=== PATIENT | female | born 1960 | race Caucasian/White ===

== ENCOUNTER 2019-06-10 11:10 | Outpatient (CLI) | payer BC, SELFPAY ==
--- NOTE | 2019-06-10 11:20 | MM_ITS ---
WS: [id number] BILATERAL SCREENING DIGITAL MAMMOGRAM WITH CAD HISTORY: SCREENING COMPARISON: 04/28/2018 and 04/11/2017 Bilateral CC and MLO views submitted. Computer aided detection analyzed. Breast composition: The breasts are extremely dense, which lowers the sensitivity of mammography. No suspicious masses, microcalcifications or architectural distortion. MM/[place] [id number] IMPRESSION: BI-RADS: 1-Negative FOLLOW UP: 1 Year Follow-up
== END 2019-06-10 11:11 | disposition home or self-care (01) ==
LOC: RADSHAW 11:17
PROVIDERS: Family Provider Family Medicine; PCP Family Medicine; Visit Provider Family Medicine
DX: Z12.31 Encounter for screening mammogram for malignant neoplasm of breast (principal)
CPT/HCPCS: 77067

== ENCOUNTER 2020-07-06 14:45 | Outpatient (CLI) | payer BC, SELFPAY ==
--- NOTE | 2020-07-06 14:49 | MM_ITS ---
WS: [id number] BILATERAL DIGITAL SCREENING MAMMOGRAM WITH CAD CLINICAL INFORMATION: SCREENING HISTORY: Screening mammogram. No current complaints. COMPARISON: June 10, 2019 TECHNIQUE: Bilateral CC and MLO. FINDINGS: The breast are composed of extremely dense tissue, which can limit the detection of small underlying mass lesions. No suspicious focal mass, asymmetry, calcifications, or architectural distortion. No ev idence of malignancy. MM/[place] [id number] IMPRESSION: BI-RADS: 1-Negative FOLLOW UP: 1 Year Follow-up Recommend return to annual screening mammography.
== END 2020-07-06 14:46 | disposition home or self-care (01) ==
LOC: RADSHAW 14:47
PROVIDERS: PCP Family Medicine; Visit Provider Family Medicine
DX: Z12.31 Encounter for screening mammogram for malignant neoplasm of breast (principal)
CPT/HCPCS: 77067

== ENCOUNTER 2021-04-24 10:49 | Outpatient (CLI) | payer BC, SELFPAY ==
--- NOTE | 2021-04-24 11:01 | XRR_ITS ---
PROCEDURE INFORMATION: Exam: XR Right Finger(s) Exam date and time: 04/24/2021 11:01 AM Age: 60 years old Clinical indication: Pain and injury or trauma; Other: Smashed right pointer finger; Crushing; Index finger; Finger(s); Prior surgery; Surgery type: Carpal tunnel; Additional info: Finger pain TECHNIQUE: Imaging protocol: XR Right fingers. Views: Minimum 2 views. COMPARISON: CR Elbow 3 views, RIGHT* [id number] 11/10/2016 9:38 AM FINDINGS: Bones/joints: There is a longitudinal fracture involving the 2nd distal phalanx. The fracture extends from the tip of the tuft of the distal phalanx to the medial/ulnar margin of the proximal metaphysis. The fracture line does not extend to the distal interphalangeal joint. There is multifocal osteoarthritis, most severe at the 1st carpometacarpal joint. Soft tissues: No soft tissue radiopaque foreign body. XR/XR finger RT min 2V [id number] IMPRESSION: 1. 2nd distal phalangeal fracture. 2. Osteoarthritis. Radiation Dose CTDIVOL = (mGy): DLP = (mGy-cm)
== END 2021-04-24 10:50 | disposition home or self-care (01) ==
PROVIDERS: PCP Family Medicine; Visit Provider Family Medicine
DX: S62.630A Displaced fracture of distal phalanx of right index finger, initial encounter for closed fracture (principal); X58.XXXA Exposure to other specified factors, initial encounter; M19.041 Primary osteoarthritis, right hand
CPT/HCPCS: 73140

== ENCOUNTER 2021-08-31 13:22 | Outpatient (CLI) | payer OTHER, SELFPAY ==
--- NOTE | 2021-08-31 13:29 | MM_ITS ---
WS: [id number] BILATERAL SCREENING 3D TOMOSYNTHESIS DIGITAL MAMMOGRAM WITH CAD HISTORY: SCREENING COMPARISON: 07/06/2020, 06/10/2019 Bilateral CC and MLO views submitted. Computer aided detection analyzed. Breast composition: The breasts are extremely dense, which lowers the sensitivity of mammography. No suspicious masses, microcalcifications or architectural distortion. MM/[place] [id number] IMPRESSION: BI-RADS: 1-Negative FOLLOW UP: 1 Year Follow-up
== END 2021-08-31 13:23 | disposition home or self-care (01) ==
LOC: RADSHAW 13:26
PROVIDERS: PCP Family Medicine; Visit Provider Family Medicine
DX: Z12.31 Encounter for screening mammogram for malignant neoplasm of breast (principal)
CPT/HCPCS: 77063; 77067

== ENCOUNTER 2021-09-19 13:37 | Outpatient (CLI) | payer OTHER, SELFPAY ==
--- NOTE | 2021-09-19 13:59 | XR_ITS ---
WS: [id number] AP pelvis, 2 views of each hip, 09/19/2021 Clinical Data: ARTHRITIS Comparison: None. Findings: The pelvis is intact without fracture. The SI joints and pubic symphysis are unremarkable. The soft t issues are normal. The hips show no abnormalities. The right hip shows no erosion, sclerosis, narrowing or fragmentation of the femoral head. There is a small acetabular lip of the right hip. The left hip shows no erosion, sclerosis, narrowing or fragmentation of the femoral head. There is a small acetabular lip of the left hip. XR/XR hip BI 3-4V wo/[place] [id number] Impression: 1. Negative pelvis. 2. Small bilateral acetabular lips.
== END 2021-09-19 13:38 | disposition home or self-care (01) ==
LOC: RAD 13:48
PROVIDERS: PCP Family Medicine; Visit Provider Family Medicine
DX: M19.90 Unspecified osteoarthritis, unspecified site (principal)
CPT/HCPCS: 73522

== ENCOUNTER → 2021-10-02 10:41 | Outpatient (BNVA) | payer OTHER, SELFPAY | PROVIDERS: PCP Family Medicine; Visit Provider Family Medicine | DX: Z00.00 Encounter for general adult medical examination without abnormal findings (principal); E03.9 Hypothyroidism, unspecified | CPT/HCPCS: 80053; 80061; 84443 ==

== ENCOUNTER 2021-11-10 09:58 | Outpatient (CLI) | payer OTHER, SELFPAY ==
--- NOTE | 2021-11-10 10:20 | MR_ITS ---
WS: [id number] MRI RIGHT HIP without CONTRAST. COMPARISON: 09/19/2021 Multiplanar, multisequence imaging is performed without contrast. There is a small amount of increased signal within the RIGHT femoral head and neck. There is also inc reased fluid within the RIGHT hip joint. Moderate joint effusion. Increased marrow edema in the super ior lateral acetabulum. There is also small amount of increased signal in the medial acetabulum. No f ractures. Osteochondral lesion in the superior femoral head measures 6 mm. There is adjacent defect i n the cartilage. Moderate narrowing of the joint space. Small osteophyte or very small 7 mm loose bod y in the joint space laterally. This is adjacent to the acetabular rim and marrow edema in the superi or lateral acetabulum but no obvious connection. This could be a small loose body in the joint space. No muscle atrophy or muscle edema. SI joints are negative. Very minimal narrowing of the LEFT hip jersey nt. 12 mm fibroid. Small amount of free fluid in the pelvis. MR/MR hip RT wo con* [id number] IMPRESSION: 1. Moderate degenerative changes involving the humeral head, joint space and a cetabulum. There is marrow edema with no fractures. Joint space narrowing and o steochondral lesion involving the superior femoral head. 2. Osteophyte versus 7 mm loose body in the joint along the superior lateral f emoral head. This may be an osteophyte but an obvious connection to the acetabu lum is not apparent. 3. Small fibroid in a small amount of free fluid in the pelvis.
== END 2021-11-10 09:59 | disposition home or self-care (01) ==
PROVIDERS: PCP Family Medicine; Visit Provider Family Medicine
DX: M16.11 Unilateral primary osteoarthritis, right hip (principal); D21.5 Benign neoplasm of connective and other soft tissue of pelvis; M25.551 Pain in right hip
CPT/HCPCS: 73721

== ENCOUNTER → 2021-11-13 13:34 | Outpatient (BNVA) | payer OTHER, SELFPAY | PROVIDERS: PCP Family Medicine; Visit Provider Family Medicine | DX: E87.1 Hypo-osmolality and hyponatremia (principal); E03.9 Hypothyroidism, unspecified | CPT/HCPCS: 80048; 84443 ==

== ENCOUNTER 2022-09-19 14:43 | Outpatient (CLI) | payer OTHER, SELFPAY ==
--- NOTE | 2022-09-19 14:54 | MM_ITS ---
WS: [id number] BILATERAL 3D TOMOSYNTHESIS DIGITAL SCREENING MAMMOGRAM WITH CAD CLINICAL INFORMATION: SCREENING HISTORY: Screening mammogram. No current complaints. COMPARISON: August 31, 2021 TECHNIQUE: Bilateral CC and MLO. FINDINGS: The breast are composed of extremely dense tissue, which can limit the detection of small underlying mass lesions. No suspicious focal mass, asymmetry, calcifications, or architectural distortion. No ev idence of malignancy. MM/[place] [id number] IMPRESSION: BI-RADS: 1-Negative FOLLOW UP: 1 Year Follow-up Recommend return to annual screening mammography.
== END 2022-09-19 14:44 | disposition home or self-care (01) ==
LOC: RAD 14:50
PROVIDERS: PCP Family Medicine; Visit Provider Family Medicine
DX: Z12.31 Encounter for screening mammogram for malignant neoplasm of breast (principal)
CPT/HCPCS: 77063; 77067

== ENCOUNTER → 2023-08-12 15:07 | Outpatient (BNVA) | payer OTHER, SELFPAY | PROVIDERS: PCP Family Medicine; Visit Provider Family Medicine | DX: Z00.00 Encounter for general adult medical examination without abnormal findings (principal); E11.9 Type 2 diabetes mellitus without complications; R10.9 Unspecified abdominal pain | CPT/HCPCS: 80053; 80061; 83690; 84443 ==

== ENCOUNTER 2023-09-22 09:41 | Outpatient (CLI) | payer OTHER, BC, MEDICAID, SELFPAY ==
--- NOTE | 2023-09-22 09:44 | MM_ITS ---
WS: [id number] BILATERAL SCREENING DIGITAL TOMOSYNTHESIS MAMMOGRAM WITH CAD HISTORY: SCREENING COMPARISON: 09/19/2022, 08/31/2021, 06/10/2019 and 04/11/2017 Bilateral CC and MLO views with tomosynthesis and synthetic mammography submitted. Computer aided det ection analyzed. Breast composition: The breasts are extremely dense, which lowers the sensitivity of mammography. No suspicious masses, microcalcifications or architectural distortion. Very dense fibroglandular asymmet carmina in the anterior portions of each breast. There are underlying well-circumscribed masses anterior ly which has been present over multiple prior years without change. No distortion. MM/[place] [id number] IMPRESSION: BI-RADS: 2-Benign FOLLOW UP: 1 Year Follow-up
== END 2023-09-22 09:42 | disposition home or self-care (01) ==
LOC: RAD 09:41
PROVIDERS: PCP Family Medicine; Visit Provider Family Medicine
DX: Z12.31 Encounter for screening mammogram for malignant neoplasm of breast (principal); R92.30 Dense breasts, unspecified
CPT/HCPCS: 77063; 77067

== ENCOUNTER 2024-07-30 11:41 | Outpatient (RCR) | payer OTHER, BC, MEDICAID, SELFPAY | END 2024-08-23 23:59 | disposition home or self-care (01) | LOC: SPT 11:41 | PROVIDERS: Visit Provider Family Medicine | DX: M54.9 Dorsalgia, unspecified (principal); G89.29 Other chronic pain | CPT/HCPCS: 97110; 97162 ==

== ENCOUNTER 2024-08-24 06:00 | Outpatient (RCR) | payer OTHER, BC, MEDICAID, SELFPAY | END 2024-09-09 08:57 | disposition home or self-care (01) | LOC: SPT 06:00 | PROVIDERS: PCP Family Medicine; Visit Provider Family Medicine | DX: M54.9 Dorsalgia, unspecified (principal); G89.29 Other chronic pain | CPT/HCPCS: 97530 ==

== ENCOUNTER → 2024-08-24 13:50 | Outpatient (BNVA) | payer OTHER, BC, MEDICAID, SELFPAY | PROVIDERS: PCP Family Medicine; Visit Provider Student in an Organized Health Care Education/Training Program | DX: M16.11 Unilateral primary osteoarthritis, right hip (principal); M25.551 Pain in right hip | CPT/HCPCS: 73502 ==

== ENCOUNTER 2024-10-06 14:54 | Outpatient (CLI) | payer OTHER, BC, MEDICAID, SELFPAY | END 2024-10-06 14:55 | disposition home or self-care (01) | LOC: LAB 14:54 | PROVIDERS: PCP Family Medicine; Visit Provider Student in an Organized Health Care Education/Training Program | DX: Z01.818 Encounter for other preprocedural examination (principal) | CPT/HCPCS: 80053; 81001; 85025 ==

== ENCOUNTER 2024-10-20 09:52 | Outpatient (CLI) | payer OTHER, BC, MEDICAID, SELFPAY ==
--- NOTE | 2024-10-20 10:00 | CT_ITS ---
WS: [id number] CT RIGHT hip, NONCONTRAST [facility] TECHNIQUE: Noncontrast CT of the RIGHT hip to include the RIGHT knee CLINICAL INFORMATION: RIGHT TOTAL HIP ARTHROPLASTY DLP: [address] scans at [facility] use at least one of these dose optimization techniques: automated exposure control; mA and/or kV adjustment per patient size (includes targeted exams where dose is matched to clinical indication); or iterative reconstruction. FINDINGS: Advanced arthritis RIGHT hip with [id number]-[id number] articulation. Subchondral sclerosis and extensive subchondral cystic changes involving femoral head and acetabulum. Hypertrophic changes about the acetabulum. Moderate to advanced degenerative narrowing of the LEFT hip with a small amount of subchondral cystic change and sclerosis. Sigmoid diverticulosis. Normal appendix RIGHT lower quadrant. Fat-containing umbilical hernia. CT/CT hip RT [facility] [id number] IMPRESSION: Images obtained for preoperative purposes.
== END 2024-10-20 09:53 | disposition home or self-care (01) ==
PROVIDERS: PCP Family Medicine; Visit Provider Student in an Organized Health Care Education/Training Program
DX: M16.0 Bilateral primary osteoarthritis of hip (principal); R93.7 Abnormal findings on diagnostic imaging of other parts of musculoskeletal system; M89.38 Hypertrophy of bone, other site; K57.30 Diverticulosis of large intestine without perforation or abscess without bleeding; K42.9 Umbilical hernia without obstruction or gangrene
CPT/HCPCS: 73700

== ENCOUNTER 2024-10-25 15:47 | Observation (INO) | payer OTHER, BC, MEDICAID, SELFPAY ==
[2024-10-25] VITALS (12 sets, daily range): BP systolic 97–148; BP diastolic 60–94; PULSE 57–88; RESP 16–18; TEMP 36.2–36.6; O2SAT 16–98
[2024-10-25] MEDS: sodium chloride 0.9% 1,000 ML 30 ML IV (11:47)
[2024-10-25] MEDS: acetaminophen 1,000 MG/100 ML PIGGYBACK 400 MG IV ×2 (11:53→20:14)
[2024-10-25] MEDS: ketorolac 30 mg/mL INJ IVP (11:54)
[2024-10-25 12:06] LABS: Basophils % 0.7 %; Eosinophils # 0.1 10^3/uL (0.0-0.8); Eosinophils % 1.7 %; Hematocrit 40.8 % (36-47); Lymphocytes % 34.1 %; Mean Corpuscular HGB Conc 34.1 g/dL (30-55); Mean Corpuscular Hemoglobin 33.1 pg (27-33); Mean Corpuscular Volume 97.1 fl (85-98); Mean Platelet Volume 9.2 fL (7.4-10.4); Monocytes # 0.4 10^3/uL (0.2-0.9); Neutrophils # 3.36 10^3/uL (1.8-7.7); Neutrophils % 56.2 %; Nucleated Red Blood Cells % 0 %; Platelet Count 261 10^3/cmm (157-399); Red Cell Distribution Width 12.2 % (12.1-15.1); White Blood Count 5.98 10^3/uL (3.29-11.43)
--- NOTE | 2024-10-25 12:08 | W.PM.OPSUD ---
Surgery/Procedure H&P Update DATE OF PROCEDURE: October 25, 2024 DATE H&P PERFORMED: 10/08/24 H&P UPDATE INFORMATION: I have reviewed H&P completed within last 30 days, I have examined patient prior to procedure and No changes to prior documentation PREOP DIAGNOSIS: Right hip DJD PRIMARY INDICATION FOR PROCEDURE: Right hip DJD PLANNED PROCEDURE: Operation Date: 10/25/24 13:10 Proposed Procedures p Girish Robot Anterior Hip Arthroplasty(Right) - Fede Houser DO
--- NOTE | 2024-10-25 12:15 | ANES.PREANE2 ---
Pre-Anesthetic Assessment Height/Weight: Height 5 ft 1 in Weight 133 lb Temp Pulse Resp BP Pulse Ox O2 Del Method 97.8 F 88 16 127/94 97 Room Air 10/25/24 11:38 10/25/24 11:38 10/25/24 11:38 10/25/24 11:38 10/25/24 11:38 10/25/24 11:38 Preop Diagnosis: Right hip DJD Operation Date: 10/25/24 13:10 Proposed Procedures p Girish Robot Anterior Hip Arthroplasty(Right) - Fede Houser, DO Was Beta Radha taken within 24 hours: N/A Was Clonidine taken within 24 hours: N/A Last intake: Intake Last Liquid Date 10/24/24 Last Liquid Time 23:30 Last Solid Date 10/24/24 Last Solid Time 19:00 Social No alcohol and No tobacco Exam alert, oriented x 3, clear to auscultation bilaterally and regular rate & rhythm Airway Submandibular: within normal limits Cervical ROM: within normal limits Mallampati: Class II Dentition: full Anesthetic Plan ASA status: 2 Anesthesia: MAC and Regional (specify below) Other: No prior issues with anesthesia NPO since yesterday evening History of hypothyroidism on Synthroid Takes meloxicam daily for chronic pain Denies any cardiac or pulmonary issues METs greater than 4, ambulation limited secondary to pain Labs reviewed acceptable for procedure Plan for spinal anesthesia Medications/Allergies Home Medications ?Medication ?Instructions ?Recorded ?Confirmed ?Last Taken ?Type levothyroxine 100 mcg tablet 100 mcg PO DAILY 10/21/24 10/21/24 10/21/24 History meloxicam 15 mg tablet 15 mg PO DAILY 10/21/24 10/21/24 10/20/24 History Allergies Allergy/AdvReac Type Severity Reaction Status Date / Time No Known Allergies Allergy Verified 10/08/24 10:41 Current Medications Generic Name Dose Route Start Last Admin Trade Name Freq PRN Reason Stop Dose Admin Sodium Chloride 1,000 mls @ 30 mls/hr 10/25/24 11:30 10/25/24 11:47 Sodium Chloride 0.9% IV 10/26/24 11:29 30 mls/hr .Q24H PACHECO Administration PFSH Anesthesia Medical History (Updated 10/08/24 @ 10:51 by Vijaya Olvera MD) Immunization declined Blood product declined Social History (Updated 10/08/24 @ 10:49 by Vijaya Olvera MD) Smoking and tobacco/nicotine status: never used tobacco/nicotine Agree to transfusion: No Data Anesthesia 10/25/24 11:46 10/25/24 11:46 Short CBC 10/25/24 Range/Units 11:46 WBC 5.98 (3.29-11.43) 10^3/uL Hgb 13.90 (11.27-16.99) g/dL Hct 40.8 (36-47) % MCV 97.1 (85-98) fl Plt Count 261 (157-399) 10^3/cmm Neut % (Auto) 56.2 % Neut # (Auto) 3.36 (1.8-7.7) 10^3/uL
[2024-10-25] MEDS: ceFAZolin 2,000 MG in sodium chloride 0.9% (plus) 50 ML 100 MG IV ×2 (12:32→20:32)
[2024-10-25 12:36] LABS: Anion Gap 17.8 (5-19); Blood Urea Nitrogen 15 mg/dL (8-23); Calcium 9.8 mg/dL (8.5-10.5); Carbon Dioxide 24 mmol/L (22-29); Chloride 102 mmol/L (98-107); Creatinine Clr Calc Pharmacy 69.4719; Glomerular Filtration Rate 84.8 mL/min (90-130); Glucose 96 mg/dL (65-115); Osmolality Calculated 291 mOsm/kg (285-295); Potassium 3.8 mmol/L (3.5-5.1); Sodium 140 mmol/L (136-145)
[2024-10-25] MEDS: tranexamic acid 1,000 mg/10mL SDV 1000 MG IV (12:53)
[2024-10-25] MEDS: VANCOMYCIN ADD-Vantage 1,000 MG VIAL 1000 MG XX (13:47)
[2024-10-25] MEDS: lidocaine-epi 1% 20 mL INJ INJECTION (13:49)
--- NOTE | 2024-10-25 15:14 | XR_ITS ---
WS: [id number] XR hip RT 2-3V wo/w pel* [id number] REASON FOR EXAM: OR PICS FINDINGS: Total right hip arthroplasty. Components of the arthroplasty are intact and in proper position and alignment. No focal bony abnormality. XR/XR hip RT 2-3V wo/w pel* [id number] IMPRESSION: Total right hip arthroplasty without abnormality.
--- NOTE | 2024-10-25 15:21 | XR_ITS ---
WS: [id number] XR hip RT 2-3V wo/w pel* [id number] REASON FOR EXAM: post op ALEXANDRA FINDINGS: Total right hip arthroplasty. Components of the arthroplasty are intact and in proper position and alignment. No acute bone abnormality. XR/XR hip RT 2-3V wo/w pel* [id number] IMPRESSION: Total right hip arthroplasty without abnormality.
--- NOTE | 2024-10-25 15:22 | P.BOP_ITS ---
Date of Procedure: 10/25/2024 Surgeon: Fede Houser DO Control Clerk Head(s): Jose Luis Houser PA-C Procedure(s) performed: Right total hip arthroplasty?Girish robotic assist (anterior approach) Findings of the procedure(s): Patient underwent procedure as planned without issues or complications. Estimated blood loss: 200 mL Specimen(s) removed: Femoral head and acetabular reamings removed Post-operative diagnosis: Right hip degenerative joint disease
--- NOTE | 2024-10-25 15:23 | P.OP_ITS ---
Operative Report Date of procedure: October 25, 2024 Surgeon: Fede Houser DO Route Salesman: Jose Luis Houser PA-C: PA was necessary for assistance in this case with leg positioning, assistance with hip reductions, retraction and protection of neurovascular structures as well as assistance in implantation wound closure and dressing application. Procedure: Preoperative diagnosis: Right hip degenerative joint disease Post-op diagnosis: Same Procedure done: Right total hip arthroplasty?Girish robotic assisted?anterior?approach Implants: Rosa Trident acetabular shell size 50 mm Rosa acetabular screw 25 mm [place] acetabular screw 15 mm [place] insignia hip stem standard offset size 4 Trident 0 degree polyethylene 36 degree inner diameter alpha code D 36 mm femoral head ceramic -2.5 mm Surgeon: Fede Houser DO Anesthesia: Other (Spinal) Estimated blood loss: 200 mL IV fluids: 1300 mL Complications: None Findings: See operative report narrative Condition: stable Disposition: floor Brief History: Patient is a 64-year-old female presented to my outpatient office setting findings consistent with nzaz-da-iuts arthritis advanced degenerative joint disease of the right hip.? We talked about treatment options as far as nonoperative and operative intervention. Pt has failed conservative treatment.? Patient's right hip degenerative joint disease has been so severe she has been minimally ambulatory over the past couple months given her pain and decreased range of motion.? we talked about treatment options at this point time pt understands the risk benefits complication alternatives surgical nonsurgical treatment options.? Patient understands the risk of surgery and agrees to proceed.? Patient has underwent a preoperative evaluation. Pt cleared for tamez rical intervention. Pt understood and was agreeable to proceed with a right total hip arthroplasty?Girish robotic assisted consent was reviewed and signed with patient.?? All questions answered.? Procedure: Patient was seen evaluated in the preoperative holding area.? Consent was reviewed and signed with patient.? Correct operative extremity was then marked. ? All questions were answered at this time.? Once cleared by anesthesia used to brought back to the operative suite he then underwent anesthesia per the anesthesia department of a spinal anesthetic. The patient was administered tranexamic acid and preop antibiotics, and placed in the supine position. All bony prominences were properly padded, securely fixed to the table, and administered?general?anesthetic. The patient was tamez bsequently transferred from the hospital bed to the [place] table. Bilateral lower extremities were placed in the traction boots. The pelvis was well approximated against the perineal post.? Final timeout performed.? Patient received appropriate preoperative antibiotics. Both hips were then prepped and draped in a normal orthopedic fashion.? Started with a small incision 2 fingerbreadths above the ASIS on the left iliac wing to place? pelvic arrays.? Small incision was made directly down to bone.? 3 pelvic pins were placed with excellent fixation.? The robotic array was secured to the nonoperative iliac wing using sterile technique. The extremity was then definitively draped in standard, sterile fashion.? The array was found to be visible by the robot. ?A standard??anterior?supine approach was performed to the?operative hip joint. The skin was incised down to the tensor fascia dodie muscle and fascia. Fascia was split longitudinally in line with its fibers. The tensor fascia dodie muscle was retracted laterally. The appropriate retractors were placed superiorly. Lateral circumflex vessels were identified and appropriately ligated. The hip capsule was then identified.? Appropriate retractors were placed superiorly and inferiorly along the capsule directly onto bone.??That was split longitudinally up to the acetabular rim in line with the femoral neck. The femoral capsule was found to be significantly hypertrophic, thickened, and significantly fibrotic. The capsule was then elevated both superiorly and inferiorly down to the lesser trochanter as well as up towards the greater trochanter.? Tag stitches were applied with 0 Vicryl into the capsule.? Femoral check point was?then inserted and confirmed on the lateral trochanter proximal femur.? .? A distal marker?of a sterile EKG lead was placed into the distal femur for measurement of leg lengths.? Preoperative leg lengths were registered and confirmed at this point. Next the appropriate-sized neck cut was then performed after being measured with robotic assistance. Femoral head was removed atraumatically this was found to have significant degenerative changes and deformity with significant osteophyte formation.? Femoral head was found to be severely degenerated and flattening with, eburnated bone. Acetabulum was also inspected and was found to have peripheral osteophytes as well as no evidence of cartilage consistent with [id number] arthritis.? Appropriate retractors were then placed in the?anterior?and posterior wall.? The remaining labrum was then excised from the periphery of the acetabular rim. Pulvinar was excised.? At this point registration for the Girish was performed on the acetabular side and confirmed. Once confirmed, any osteophytes able to be were removed. We planned 40 degrees of lateral opening and 20 degrees of anteversion. At this point, we reamed and medialized to the inner wall of the acetabulum with a size? 50?reamer for line to line fit.?The acetabulum was found to have good bleeding bone throughout.?? Reamer removed excellent bleeding bone circumferentially with sufficient?anterior?and posterior wall. ?The definitive acetabular cup 50 mm was inserted and impacted under?Girish guidance with the appropriate amount of anteversion and lateral opening. It was then secured with 2x 6.5 mm cancellous screws in appropriate safe zone position.? I subsquently drilled measured and place appropriate length acetabular screws which measured 25 mm and 15 mm.? These had excellent fixation final x-rays were taken of the acetabular work and showed a seated and well fixed acetabular cup with appropriate position acetabular screws.? ?Next a 36-mm X3 neutral liner was impacted into the?acetabular shell and secured. Hip was then irrigated with copious amounts of irrigation. At this point, the remaining femoral releases were then performed allowing the adequate mobilization of the?right?femur.? Traction was confirmed to being off to the right lower extremity and the femur was then externally rotated, extended, and adducted giving adequate exposure of the proximal femur in the surgical wound. Box cut was then used to enter the intramedullary canal of the?femur. Canal finder was placed down the canal of the?operative femur. Appropriate-sized broaches from a size 0 up to a size 4 were impacted down the operative femoral canal with the appropriate amount of anteversion.? A multiple trials were attempted and it was found?that?-2.5mm neck was found to be most appropriate for a soft tissue tensioning offset, stability and the leg lengths?that was confirmed with Girish. ?Stability was then assessed and excellent stability with patient external rotation of greater?than 90 degrees and traction with no evidence of hip instability.? Appropriate tension noted of the soft tissues. At this point, the hip was relocated.?Girish guidance was again used to confirm appropriate leg lengths.? We utilized C-arm fluoroscopic guided as well to confirm appropriate implant positioning both AP and lateral films. Patient's trial was the appropriate size for patient's stability and excellent soft tissue tensioning as well as this was mapped with her preoperative planning given she had been significantly shortened given her arthritis.? Operative hip was then re-dislocated using a bone hook. All trials were then removed from the?operative femur. Adequate exposure was then once again obtained. The trials were removed. The definitive Rosa insignia standard offset size 4 stem was impacted down the?femoral canal with the appropriate amount of anteversion to the same level as the trial. The appropriate sized head 36 mm ceramic -2.5mm was impacted onto the trunnion, and the?operative?hip was then relocated with traction and internal rotation. Final measurements were obtained on Girish confirming leg lengths and offset.? Once again hip stability was assessed and found to have excellent stability and appropriate soft tissue tensioning.? Hip was irrigated with copious amounts of irrigation.? Vancomycin powder was placed within the wound bed for added infection prophylaxis.? The superior and inferior leaflets of the capsule were then closed with Ethibond suture.? Vicryl tag stitches were removed.? The superficial layer of the tensor fascia dodie fascia was closed using 0 stratafix suture in a running fashion.? Subcutaneous tissues were closed with running 3-0 Stratafix, skin was closed with 4-0 monocryl.?Surgical Prineo glue and steri strips were?applied and covered with a tamika incisional VAC dressing to the operative side.?The incision on the non-operative side for the robotic array was irrigated and closed with layered fashion of 0 Vicryl, 2-0 Vicryl and running Monocryl suture and surgical glue and covered with Silverlon. ?The patient was subsequently awoken per Anesthesia and transferred to PACU in satisfactory condition. ?Leg lengths and rotational profile were found to be appropriate. ? DISPOSITION: The patient will be admitted to the hospital for initiation of DVT prophylaxis, physical therapy, pain control. The patient is to weight bear as tolerated.?Anterior?hip precautions, postoperative antibiotics,?postoperative TXA and Eliquis?for DVT prophylaxis.? Patient will receive appropriate discharge instructions as well as pain medication postoperatively and will follow up in my office in 2 weeks.? Patient with work with PT/OT.? Internal medicine will be consulted for medical management
--- NOTE | 2024-10-25 16:04 | ANE.PACU2 ---
Inpatient post-anesthesia follow up: Airway intact: Yes Vital signs: Temperature 98.6 F Pulse Rate 65 Respiratory Rate 20 Blood Pressure 119/76 Pulse Oximetry 96 Oxygen Delivery Me thod Room Air Oxygen Flow Rate 6 Fraction of Inspir ed Oxygen Hydration adequate: Yes Nausea and vomiting: No Pain level: 1 Mental status: Baseline
[2024-10-25] MEDS: mupirocin oint 22 gm 1 APPLIC NASAL (17:01)
[2024-10-25] MEDS: sennosides-docusate Tablet 2 TAB PO (17:01)
[2024-10-25] MEDS: chlorhexidine gluconate 0.12% Btl 473 mL 30 ML MUCOUS MEM ×2 (17:01→20:29)
[2024-10-25] MEDS: iron polysaccharide complex 150 mg Capsule PO (17:01)
[2024-10-25] MEDS: calcium carb-vit d 600mg/400unit 1 Tablet 1 EACH PO (17:01)
[2024-10-25] MEDS: lactated ringers 1,000 ML 100 ML IV (17:02)
--- NOTE | 2024-10-25 17:31 | PC.NURSE ---
Patient had increased bruising and swelling to incision area on right anterior hip. This was noted immediately when she came up from OR, but swelling had increased and a bruise had formed toward the lower part of the incision. Dr. Houser was notified of change at 1721, he stated to just monitor patient and if it became worse, to notify him again. Patient resting well in bed at this time.
--- NOTE | 2024-10-25 17:47 | P.HP_ITS ---
Providers/Chief Complaint 2 Admitting Physician: Fede Houser DO Primary Care Provider: Tj Marie MD Chief Complaint: M25.559 History of Present Illness Moni Stewart is a 64 year old female Review of Systems 2 Card: Denies: chest pain Resp: Denies: dyspnea Medications/Allergies Home Medications ?Medication ?Instructions ?Recorded ?Confirmed ?Last Taken ?Type levothyroxine 100 mcg tablet 100 mcg PO DAILY 10/21/24 10/21/24 10/21/24 History meloxicam 15 mg tablet 15 mg PO DAILY 10/21/2409/2410/20/24 History Allergies Allergy/AdvReac Type Severity Reaction Status Date / Time No Known Allergies Allergy Verified 10/08/24 10:41 PFSH Acute 2 PFSH: Medical History (Updated 10/08/24 @ 10:51 by Vijaya Olvera MD) Immunization declined Blood product declined Social History (Updated 10/08/24 @ 10:49 by Vijaya Olvera MD) Smoking and tobacco/nicotine status: never used tobacco/nicotine Agree to transfusion: No Vitals/I&O/Wt Last Vital Signs Temp 97.3 F L 10/25/24 16:43 Pulse 75 10/25/24 16:48 Resp 18 10/25/24 16:48 BP 123/80 10/25/24 16:43 Pulse Ox 96 10/25/24 16:48 O2 Del Method Room Air 10/25/24 16:48 O2 Flow Rate 6 10/25/24 15:43 10/25/24 10/25/24 10/25/24 06:59 14:59 22:59 Intake Total 1150 / 1150 350 / 1500 Output Total 400 / 400 Balance 1150 / 1150 -50 / 1100 Weight last 48 hrs Weight 60.328 kg Weight 60.328 kg Physical Exam 2 Urinary Catheter Management: Caraballo: Cath Placed During This Visit: yes Urinary Catheter Date of Insertion: 10/25/24 Urinary Catheter Time of Insertion: 12:41 Data 10/25/24 11:46 10/25/24 11:46 A&P PDMP PDMP Reviewed: Not Reviewed Coding Level of Care Code Acute Code for Chg Fwd
--- NOTE | 2024-10-25 18:04 | PM.CONSULT ---
Providers/Reason For Consult Consulting Physician/Specialty*: orthopedics Reason for Consult*: medical managment Attending Physician: Fede Houser DO Primary Care Provider: Tj Marie MD History of Present Illness History of Present Illness Moni Stewart is a 64 year old female Moni Stewart is a 64 year old female with past medical history of hypothyroidism, admitted to [facility] for right total hip arthroplasty, currently sitting up in bed, denies any fevers, no chills, no cough, she is enjoying her dinner, no cardiovascular history, no history of strokes, no history of diabetes, no history of smoking Review of Systems Card: Denies: chest pain Resp: Denies: dyspnea Medications/Allergies Home Medications ?Medication ?Instructions ?Recorded ?Confirmed ?Last Taken ?Type levothyroxine 100 mcg tablet 100 mcg PO DAILY 10/21/24 10/21/24 10/21/24 History meloxicam 15 mg tablet 15 mg PO DAILY 10/21/24 10/21/24 10/20/24 History Allergies Allergy/AdvReac Type Severity Reaction Status Date / Time No Known Allergies Allergy Verified 10/08/24 10:41 Current Medications Generic Name Dose Route Start Last Admin Trade Name Freq PRN Reason Stop Dose Admin Calcium Carbonate 1 each 10/25/24 18:00 10/25/24 17:01 Calcium Carb-Vit D 600mg/400unit 1 Tablet PO 1 each BID PACHECO Administration Chlorhexidine Gluconate 30 ml 10/25/24 17:00 10/25/24 17:01 Chlorhexidine Gluconate 0.12% Btl 473 Ml MUCOUS MEM 30 ml QID PACHECO Administration Lactated Ringer's 1,000 mls @ 100 mls/hr 10/25/24 16:21 10/25/24 17:02 Lactated Ringers IV 100 mls/hr .Q10H PACHECO Administration Mupirocin 1 applic 10/25/24 18:00 10/25/24 17:01 Mupirocin Oint 22 Gm NASAL 10/30/24 17:59 1 applic BID PACHECO Administration Polysaccharide Iron Complex 150 mg 10/25/24 18:00 10/25/24 17:01 Iron Polysaccharide Complex 150 Mg Capsule PO 150 mg BIDWM PACHECO Administration Senna/Docusate Sodium 2 tab 10/25/24 18:00 10/25/24 17:01 Sennosides-Docusate Tablet PO 2 tab BID PACHECO Administration PFSH Acute PFSH: Medical History Immunization declined Blood product declined Social History Smoking and tobacco/nicotine status: never used tobacco/nicotine Agree to transfusion: No Vitals/I&O/Wt Last Vital Signs Temp 97.3 F L 10/25/24 16:43 Pulse 75 10/25/24 16:48 Resp 18 10/25/24 16:48 BP 123/80 10/25/24 16:43 Pulse Ox 96 10/25/24 16:48 O2 Del Method Room Air 10/25/24 16:48 O2 Flow Rate 6 10/25/24 15:43 10/25/24 10/25/24 10/25/24 06:59 14:59 22:59 Intake Total 1150 / 1150 350 / 1500 Output Total 400 / 400 Balance 1150 / 1150 -50 / 1100 Weight last 48 hrs Weight 60.328 kg Weight 60.328 kg Physical Exam Const: COMMON NORMALS: no acute distress and patient oriented x3 HENMT: COMMON NORMALS: normocephalic HEAD & SCALP: normocephalic Resp: COMMON NORMALS: normal respiratory effort, No retractions, No use of accessory muscles and clear to auscultation bilaterally AUSCULTATION: clear to auscultation bilaterally Cardio: COMMON NORMALS: regular rate, regular rhythm, S1 normal heart sound present and S2 normal heart sound present RATE: regular rate RHYTHM: regular rhythm HEART SOUNDS: S1 normal heart sound present and S2 normal heart sound present GI: COMMON NORMALS: Normal to inspection, nondistended, normoactive bowel sounds present and non-tender Extremity: COMMON NORMALS: no pedal edema NARRATIVE EXTREMITY EXAM: Right hip wrapped Neuro: COMMON NORMALS: patient oriented x3 Psych: COMMON NORMALS: mental status grossly normal Urinary Catheter Management: Caraballo: Cath Placed During This Visit: yes Urinary Catheter Date of Insertion: 10/25/24 Urinary Catheter Time of Insertion: 12:41 Data 10/25/24 11:46 10/25/24 11:46 A&P Assessment and plan (1) Hypothyroid: (2) Hip osteoarthritis: Plan Right hip osteoarthritis, status post right total hip arthroplasty, pain control and anticoagulation as per orthopedic team Hypothyroidism resume levothyroxine Eliquis for DVT prophylaxis PDMP PDMP Reviewed: Not Reviewed Consult Attestations Medical Necessity Statement: Patient requires hospitalization for right hip osteoarthritis status post arthroplasty Diagnoses Hypothyroid E03.9 Hip osteoarthritis M16.9
[2024-10-25] MEDS: tranexamic acid 1,000 MG/100 ML PREMIX 600 MG IV (18:50)
[2024-10-25] MEDS: oxyCODONE 5 mg IR Tab/Cap PO (18:50)
[2024-10-26] VITALS (8 sets, daily range): BP systolic 93–146; BP diastolic 54–92; PULSE 65–82; RESP 16–20; TEMP 36.5–37.2; O2SAT 94–99
[2024-10-26] MEDS: lactated ringers 1,000 ML 100 ML IV (02:35)
[2024-10-26] MEDS: temazepam 15 mg Capsule PO (02:35)
[2024-10-26] MEDS: oxyCODONE 5 mg IR Tab/Cap PO ×3 (02:35→12:37)
[2024-10-26] MEDS: acetaminophen 1,000 MG/100 ML PIGGYBACK 400 MG IV ×2 (04:17→11:24)
[2024-10-26] MEDS: ceFAZolin 2,000 MG in sodium chloride 0.9% (plus) 50 ML 100 MG IV ×2 (04:31→11:23)
[2024-10-26 06:07] LABS: Basophils % 0.3 %; Eosinophils % 0.4 %; Lymphocytes # 1.6 10^3/uL (0.8-4.8); Lymphocytes % 22.1 %; Mean Corpuscular HGB Conc 32.8 g/dL (30-55); Mean Corpuscular Hemoglobin 32.5 pg (27-33); Mean Corpuscular Volume 99.3 fl (85-98); Mean Platelet Volume 9.6 fL (7.4-10.4); Monocytes # 0.6 10^3/uL (0.2-0.9); Monocytes % 8.5 %; Neutrophils # 4.96 10^3/uL (1.8-7.7); Nucleated Red Blood Cells % 0 %; Platelet Count 197 10^3/cmm (157-399); Red Blood Count 2.92 10^6/uL (3.85-5.65); Red Cell Distribution Width 12.2 % (12.1-15.1); White Blood Count 7.29 10^3/uL (3.29-11.43)
[2024-10-26 06:31] LABS: Blood Urea Nitrogen 14 mg/dL (8-23); Calcium 8.4 mg/dL (8.5-10.5); Carbon Dioxide 22 mmol/L (22-29); Chloride 103 mmol/L (98-107); Creatinine Clr Calc Pharmacy 60.7879; Glomerular Filtration Rate 72.7 mL/min (90-130); Glucose 97 mg/dL (65-115); Osmolality Calculated 282 mOsm/kg (285-295); Sodium 136 mmol/L (136-145)
[2024-10-26] MEDS: calcium carb-vit d 600mg/400unit 1 Tablet 1 EACH PO (08:05)
[2024-10-26] MEDS: mupirocin oint 22 gm 1 APPLIC NASAL (08:05)
[2024-10-26] MEDS: apixaban 5 mg Tablet 2.5 MG PO (08:05)
[2024-10-26] MEDS: sennosides-docusate Tablet 2 TAB PO (08:05)
[2024-10-26] MEDS: iron polysaccharide complex 150 mg Capsule PO (08:05)
[2024-10-26] MEDS: levothyroxine 100 mcg Tablet PO (08:05)
[2024-10-26] MEDS: multivitamin therapeutic Tablet 1 TAB PO (08:05)
[2024-10-26] MEDS: chlorhexidine gluconate 0.12% Btl 473 mL 30 ML MUCOUS MEM (08:05)
--- NOTE | 2024-10-26 09:48 | PC.CHAP ---
Pastoral Care Encounter/Spiritual Assessment Type of Contact [] Declined developer evangelist visit [] Patient/Family/Request visit [] Outpatient visit [] Follow-up visit [] Physician referral [] Code/Alert [x] Routine visit [] Staff referral [] Actively dying [] Patient sleeping [] Family support [] [] Out of room [] Palliative care [] [] Receiving care in room [] Pre-surgical visit [] Trauma [] Long length of stay [] ICU visit [] Other: Relational/Emotional Strength [x] Patient feels connected with others/family/visitors/staff [] Distress [] Loneliness/isolation [] Abandonment Spirituality of Patient [x] Person of Rebecca [ Attends Sabianism of their Rebecca [x] Believes in Prayer [] Reads Bible or Zoroastrian materials [] There are Spiritual issues to be addressed Special Officer Automat Interventions [x Prayer [x] Active listening [x] Non-anxious presence [x] Spiritual/emotional support [] Crisis/trauma care [] Spiritual counseling [] Bereavement support [] Provided bereavement packet [] Provided Bible/devotional materials [] Provided toy/stuffed animal, coloring book to patient or family member [] Provided Communion [] Anointing/Hillman [] Salvation [] Completed spiritual assessment [x] Other: Impact on Illness or Injury [] Angry [] Fearful [] Anxious [] Often cries [] Exhaustion [] Unable to work [] Unable to attend oriental orthodox [] Unable to walk/stand [] Unable to read [] Unable to drive [] Unable to eat/drink [] Unable to sleep [] Unable to be with family [] Patient intubated [] Other: Summary Time spent with patient 5 min
--- NOTE | 2024-10-26 12:01 | P.PN_ITS ---
Subjective 2 Subjective: Patient was seen this morning she is alert oriented x 3, following all commands, denies any fevers, no chills, no nausea, no chest pain, she has received a dose of her pain medication, plan on PT OT, discussed with her that as she is being discharged on Eliquis for DVT prophylaxis, monitor for bloody black stools or significant follow-up if so come to the hospital she should not take her meloxicam for as long as she is taking Eliquis as there is a high risk of bleeding, she voiced understanding, all questions answered Vitals/I&O/Wt Last Vital Signs Temp 98.6 F 10/26/24 11:14 Pulse 65 10/26/24 11:14 Resp 20 H 10/26/24 11:14 BP 119/76 10/26/24 11:14 Pulse Ox 96 10/26/24 11:14 O2 Del Method Room Air 10/26/24 11:14 O2 Flow Rate 6 10/25/24 15:43 10/25/24 10/26/24 10/26/24 22:59 06:59 14:59 Intake Total 1411.667 / 2561.667 1046.667 / 3608.334 1270 / 1270 Output Total 1300 / 1300 1150 / 2450 Balance 111.667 / 1261.667 -103.333 / 3941.397 8524 / 1270 Weight last 48 hrs Weight 60.328 kg Weight 60.328 kg Weight 60.328 kg Physical Exam 2 Const: COMMON NORMALS: no acute distress and patient oriented x3 Resp: COMMON NORMALS: normal respiratory effort, No retractions, No use of accessory muscles and clear to auscultation bilaterally AUSCULTATION: clear to auscultation bilaterally Cardio: COMMON NORMALS: regular rate, regular rhythm, S1 normal heart sound present and S2 normal heart sound present RATE: regular rate RHYTHM: r egular rhythm HEART SOUNDS: S1 normal heart sound present and S2 normal heart sound present GI: COMMON NORMALS: Normal to inspection, nondistended, normoactive bowel sounds present and non-tender Extremity: COMMON NORMALS: no pedal edema Neuro: COMMON NORMALS: patient oriented x3 Psych: COMMON NORMALS: mental status grossly normal Urinary Catheter Management: Caraballo: Cath Placed During This Visit: yes, but has since been removed by the nurse Reason for Continuing Indwelling Catheter: Perioperative Use in Selected Surgeries Urinary Catheter Date of Insertion: 10/25/24 Urinary Catheter Time of Insertion: 12:41 Date Urinary Catheter Removed: 10/26/24 Time Urinary Catheter Discontinued: 06:20 Data 10/26/24 05:16 10/26/24 05:16 A&P Assessment and plan (1) Hypothyroid: (2) Hip osteoarthritis: Plan Right hip osteoarthritis, status post right total hip arthroplasty, pain control and anticoagulation as per orthopedic team Hypothyroidism resume levothyroxine Eliquis for DVT prophylaxis PDMP PDMP Reviewed: Not Reviewed Attestations 2 Medical Necessity Statement*: Patient will be discharged today Diagnoses Hypothyroid E03.9 Hip osteoarthritis M16.9
--- NOTE | 2024-10-26 13:24 | PM.DCS ---
Discharge Providers Date of Admission: 10/25/24 15:47 Date of Discharge: October 26, 2024 Attending Provider at Admission: Fede Houser DO Attending Provider at Discharge: Clinton Pablo MD Primary Care Provider: Tj Marie MD Diagnoses at Discharge Discharge Diagnosis (1) Hypothyroid: Status: Acute (2) Hip osteoarthritis: Status: Resolved Reason for Visit Reason for Visit: M25.559 Brief History: Status post right total hip arthroplasty?Girish robotic assisted Hospital Course Hospital Course Patient was brought to the hospital through the preoperative holding area with plan for right total hip arthroplasty for right hip dengerative joint disease. Once cleared by anesthesia for surgery subsequently was taken back to the operative suite underwent anesthesia per the anesthesia department and then underwent right total hip arthroplasty with Girish robotic assistance anterior approach without any complications. Patient was then subsequently taken back to PACU in stable condition recovering well. Once recovered, patient was then subsequently admitted to the floor postoperatively. Internal medicine was consulted for medical management assistance. Patient weightbearing as tolerated to the right lower extremity, anterior hip precautions. PT/OT. Pain control. DVT prophylaxis. Postoperative antibiotics and TXA. dressing was change as needed. Internal medicine was on board and appreciate their medical management and assistance. Patient recovered well postoperatively. Pt was determined on postoperative day 1 the patient was stable for discharge from orthopedic as well as internal medicine standpoint. Patient's labs were monitored daily. Patient will receive appropriate pain medication as well as DVT prophylaxis postoperatively. Appropriate discharge instructions as well. Patient was then discharged in stable condition. Patient will discharge home. Pt will follow-up with Orthopedics in the office in 2 weeks. Patient understands and agrees with current plan. All questions answered. Understands there is any issues or concerns and contact the office. Physical Exam Narrative: Right hip examination: Dressing on in place, clean dry and intact to the right hip. Dressing to the left hip is clean dry and intact. No evidence of saturation. Patient has normal postoperative swelling and tenderness to palpation to the right hip and left iliac wing. Compartments are soft compressible,'s calf soft and nontender. Sensations intact to light touch distally. Distal pulses are palpable. Patient is able to wiggle toes as well as plantarflex and dorsiflex ankle. Patient is able to perform straight leg raise today. Urinary Catheter Management: Caraballo: Cath Placed During This Visit: yes, but has since been removed by the nurse Reason for Continuing Indwelling Catheter: Perioperative Use in Selected Surgeries Urinary Catheter Date of Insertion: 10/25/24 Urinary Catheter Time of Insertion: 12:41 Date Urinary Catheter Removed: 10/26/24 Time Urinary Catheter Discontinued: 06:20 Discharge Data Studies Completed and Pending Completed Studies During Hospitalization Category Date Time Status XR hip RT 2-3V wo/w pel* [id number] Routine Exams 10/25/24 15:14 Completed XR hip RT 2-3V wo/w pel* [id number] Routine Exams 10/25/24 15:21 Completed Pending at discharge Category Date Time Status Basic Metabolic Panel AM LABS Lab 10/27/24 04:00 Ordered Basic Metabolic Panel AM LABS Lab 10/28/24 04:00 Ordered Complete Blood Count w/Auto AM LABS Lab 10/27/24 04:00 Ordered Complete Blood Count w/Auto AM LABS Lab 10/28/24 04:00 Ordered Radiology Impressions Hip/Pelvis X-Ray 10/25/24 15:21 IMPRESSION: Total right hip arthroplasty without abnormality. Laboratory Results WBC 7.29 10^3/uL (3.29-11.43) 10/26/24 05:16 RBC 2.92 10^6/uL (3.85-5.65) L 10/26/24 05:16 Hgb 9.50 g/dL (11.27-16.99) L D 10/26/24 05:16 Hct 29.0 % (36-47) L 10/26/24 05:16 MCV 99.3 fl (85-98) H 10/26/24 05:16 MCH 32.5 pg (27-33) 10/26/24 05:16 MCHC 32.8 g/dL (30-55) 10/26/24 05:16 RDW 12.2 % (12.1-15.1) 10/26/24 05:16 Plt Count 197 10^3/cmm (157-399) 10/26/24 05:16 MPV 9.6 fL (7.4-10.4) 10/26/24 05:16 Neut % (Auto) 68.0 % 10/26/24 05:16 Lymph % (Auto) 22.1 % 10/26/24 05:16 Mcmullen % (Auto) 8.5 % 10/26/24 05:16 Eos % (Auto) 0.4 % 10/26/24 05:16 Baso % (Auto) 0.3 % 10/26/24 05:16 Neut # (Auto) 4.96 10^3/uL (1.8-7.7) 10/26/24 05:16 Lymph # (Auto) 1.6 10^3/uL (0.8-4.8) 10/26/24 05:16 Mcmullen # (Auto) 0.6 10^3/uL (0.2-0.9) 10/26/24 05:16 Eos # (Auto) 0.0 10^3/uL (0.0-0.8) 10/26/24 05:16 Baso # (Auto) 0.0 10^3/uL (0.0-0.1) 10/26/24 05:16 Nucleated RBC % (auto) 0 % 10/26/24 05:16 Nucleated RBCs # 0.0 /100WBC 10/26/24 05:16 Sodium 136 mmol/L (136-145) 10/26/24 05:16 Potassium 4.0 mmol/L (3.5-5.1) 10/26/24 05:16 Chloride 103 mmol/L (98-107) 10/26/24 05:16 Carbon Dioxide 22 mmol/L (22-29) 10/26/24 05:16 Anion Gap 15.0 (5-19) 10/26/24 05:16 BUN 14 mg/dL (8-23) 10/26/24 05:16 Creatinine 0.8 mg/dL (0.5-0.9) 10/26/24 05:16 GFR Calculation 72.7 mL/min (90-130) L 10/26/24 05:16 Glucose 97 mg/dL (65-115) 10/26/24 05:16 Calculated Osmolality 282 mOsm/kg (285-295) L 10/26/24 05:16 Calcium 8.4 mg/dL (8.5-10.5) L 10/26/24 05:16 Blood Type AB Positive 10/26/24 08:16 Rho(D) Type Rh positive 10/26/24 08:16 Antibody Screen Negative 10/26/24 08:16 Vitals Last Vital Signs Temp 98.6 F 10/26/24 11:14 Pulse 65 10/26/24 11:14 Resp 16 10/26/24 12:37 BP 119/76 10/26/24 11:14 Pulse Ox 96 10/26/24 11:14 O2 Del Method Room Air 10/26/24 11:14 O2 Flow Rate 6 10/25/24 15:43 Discharge Plan Discharge Patient Disposition: Home Condition: Stable Prescriptions: New Eliquis 2.5 mg tablet 2.5 mg PO BID 35 Days Qty: 70 0RF methocarbamol 500 mg tablet 500 mg PO TID PRN (Reason: muscle spasms/pain) 14 Days Qty: 42 0RF oxycodone 5 mg tablet 5 mg PO Q6H PRN (Reason: pain postop) 7 Days Qty: 28 0RF cefadroxil 500 mg capsule 500 mg PO BID 7 Days Qty: 14 0RF Continued levothyroxine 100 mcg tablet 100 mcg PO DAILY Rx Instructions: Take 1 tablet by mouth once daily Held meloxicam 15 mg tablet 15 mg PO DAILY Hold Instructions: Resume on 11/16/24. hold until you finish eliquis Rx Instructions: Take 1 tablet by mouth once daily Discharge Orders: Discharge Order (Routine); Ordered 10/26/24 Ordered By: Clinton Pablo Other Ambulatory Orders: DME: Walker (Order) Location: None Selected Ordered By: Clinton Pablo Physical Therapy Eval and Treat Outpatient (Order) Timeframe: 3 Days Facility: [facility] - Location: Physical Therapy Ordered By: Fede Houser Referrals: [facility] Outpatient Therapy [Outside] Referral Note: You will need OP Physical Therapy. We have notified [facility] of the need for a follow-up appointment to be scheduled. If you have not heard from them within the next 2 business days, please call them directly. Fede Houser DO [Physician, Orthopedics] - 11/08/24 9:15 am Tj Marie MD [Primary Care Provider, Family Practice] Referral Note: We have notified your physician's clinic of the need for a follow-up appointment to be scheduled. If you have not heard from them within the next 2 business days, please call them directly. Discharge Diet: Regular Discharge Activity: Limit activity as instructed and Use walker/crutches as instructed Patient Instructions: Oxycodone, Rapid Release (By mouth), Apixaban (By mouth), Acute Wound Care (DC), Total Hip Replacement (GEN), Opioid Safety, Post Anesthesia Care Activity Restrictions/Additional Instructions: Orthopedic discharge instructions: Maria R Dressing--Keep dressing on and dry. After 3 days you can remove some of the dressing and shower. disconnect battery pack when showering. Maria R dressing will stay on until follow up appt in 2 weeks. The battery pack for the dressing will at 5-7 days. Battery pack can be removed and discarded once batteries . Patient should keep dressings clean dry and intact Okay to shower over dressings if they do become wet these should be removed and new dressings applied (you can cover these with Saran wrap to prevent getting wet) Keep incisions clean dry and intact, leave Silverlon bandage dressings on in place for 7 days after that may rinse incisions with warm soapy water pat dry and redress with a dry dressing Follow anterior hip precautions (avoid hip extension and external rotation/crossing of the legs) Weight-bear as tolerated to operative lower extremity Anterior hip precautions as instructed by physical therapy Ice as needed for pain and swelling Take pain medication as prescribed Take antinausea medication as needed Supplement with Citracal vitamin D for bone health and healing Pain medication can cause constipation. take [id number] stool softeners and or MiraLAX. Take blood thinner as prescribed (Eliquis) Follow-up in the orthopedic office in 2 weeks Contact the office for any questions or concerns Discharge Attestations Time Spent in Discharge Care*: less than 30 min Quality Metrics Clinical Quality Measures [ No reported AMI, CVA or VTE this stay] Coding Level of Care Code Acute Code for Chg Fwd Diagnoses Hypothyroid E03.9 Hip osteoarthritis M16.9 Time Spent (min) 25
== END 2024-10-26 14:20 | disposition home or self-care (01) ==
LOC: MEDSURG 15:47
PROVIDERS: Physician Assistant; Admitting Provider Student in an Organized Health Care Education/Training Program; PCP Family Medicine; Visit Provider Family Medicine
PROC: 8E0Y0CZ Robotic Assisted Procedure of Lower Extremity, Open Approach (ICD-10-PCS; CPT 27130; principal; 2024-10-25 12:40)
DX: M16.11 Unilateral primary osteoarthritis, right hip (principal); E03.9 Hypothyroidism, unspecified; Z79.890 Hormone replacement therapy; Z79.1 Long term (current) use of non-steroidal anti-inflammatories (NSAID)
CPT/HCPCS: 27130; 20985; 36415; 51702; 73502; 80048; 85025; 86850; 86900; 97116; 97161; 97165; C1713; C1776; G0378; J0131; J0690; J1885; J2250; J2371; J2405; J2704; J3370; J3490; J7030; J7120; J9999

== ENCOUNTER 2024-10-28 09:33 | Outpatient (RCR) | payer OTHER, BC, MEDICAID, SELFPAY | END 2024-11-22 23:59 | disposition home or self-care (01) | LOC: SPT 09:33 | PROVIDERS: PCP Family Medicine; Visit Provider Student in an Organized Health Care Education/Training Program | DX: Z47.1 Aftercare following joint replacement surgery (principal); Z96.651 Presence of right artificial knee joint | CPT/HCPCS: 97110; 97161 ==

== ENCOUNTER → 2024-11-08 09:09 | Outpatient (BNVA) | payer OTHER, BC, MEDICAID, SELFPAY | PROVIDERS: PCP Family Medicine; Visit Provider Physician Assistant | DX: Z96.641 Presence of right artificial hip joint (principal) | CPT/HCPCS: 73502 ==

== ENCOUNTER → 2024-12-21 08:48 | Outpatient (BNVA) | payer OTHER, BC, MEDICAID, SELFPAY | PROVIDERS: PCP Family Medicine; Visit Provider Student in an Organized Health Care Education/Training Program | DX: Z96.641 Presence of right artificial hip joint (principal) | CPT/HCPCS: 73502 ==

== ENCOUNTER → 2025-03-22 13:33 | Outpatient (BNVA) | payer OTHER, BC, MEDICAID, SELFPAY | PROVIDERS: PCP Family Medicine; Visit Provider Student in an Organized Health Care Education/Training Program | DX: Z96.641 Presence of right artificial hip joint (principal) | CPT/HCPCS: 73502 ==